=== PATIENT | male | born 1935 | race Caucasian/White ===

== ENCOUNTER 2019-08-22 06:30 | Observation (INO) | payer BC, MEDICARE ==
[~2019-08-22 06:30] MED LIST: Lactated Ringers 1,000 ML IV SCH; Sodium Chloride 0.9% 10 ML SDV IV PRN; Sodium Chloride 0.9% 10 ML Syringe FLUSH PRN; Sodium Chloride 0.9% 2.5 ML Syringe FLUSH PRN; ceFAZolin 2 GM in Premix Bag 1 BAG IV ONE
--- NOTE | 2019-08-22 07:16 | PCM.PREANE ---
Preanesthetic Assessment - Anesthesia/Transfusion/Family Hx Anesthesia History: Prior Anesthesia Without Reaction Other Type of Anesthesia Reaction Comment: Denies any known problem in past Family History of Anesthesia Reaction: No Transfusion History: No Prior Transfusion(s) Intubation History: Unknown - Review of Systems General: No Symptoms Pulmonary: No Symptoms Cardiovascular: No Symptoms Gastrointestinal: No Symptoms Neurological: No Symptoms Other: Reports: None - Physical Assessment Height: 6 ft 2 in Weight: 120.202 kg ASA Class: 3 Mental Status: Alert & Oriented x3 Airway Class: Mallampati = 2 Dentition: Reports: Normal Dentition, [place](s) (x2 upper front) Thyro-Mental Finger Breadths: 3 Mouth Opening Finger Breadths: 3 ROM/Head Extension: Limited/Partial Lungs: Clear to Auscultation, Normal Respiratory Effort Cardiovascular: Regular Rate, Regular Rhythm - Allergies Allergies/Adverse Reactions: Allergies Allergy/AdvReac Type Severity Reaction Status Date / Time No Known Allergies Allergy Verified 08/16/19 12:12 - Blood Blood Available: No - Anesthesia Plan Pre-Op Medication Ordered: None - Acknowledgements Anesthesia Type Planned: General Anesthesia Pt an Appropriate Candidate for the Planned Anesthesia: Yes Alternatives and Risks of Anesthesia Discussed w Pt/Guardian: Yes Pt/Guardian Understands and Agrees with Anesthesia Plan: Yes PreAnesthesia Questionnaire HEENT History: Reports: Impaired Vision Other HEENT History: wears glasses Cardiovascular History: Reports: High Cholesterol, Hypertension Gastrointestinal History: Reports: GI Bleed Other Gastrointestinal History: states GI bleed x2 Genitourinary History: Reports: BPH, Other (See Below) Other Genitourinary History: HX of prostate disease, bladder tumor Musculoskeletal History: Reports: Fracture, Gout Other Musculoskeletal History: states uses hot pack for back "stiffness", hx of laminectomy, knee surgery," removal" of right clavicle, fx left femur Neurological History: Reports: Concussion Oncologic (Cancer) History: Reports: Bladder - Past Surgical History Head Surgeries/Procedures: Reports: None GI Surgical History: Reports: Colonoscopy, EGD Male Surgical History: Reports: Vasectomy Other Male Surgeries/Procedures: hematuria Neurological Surgical History: Reports: Laminectomy Musculoskeletal Surgical History: Reports: Knee Replacement, Other (See Below) ( rt. clavicle resection) Other Musculoskeletal Surgeries/Procedures:: Left TKA 3 years ago - SUBSTANCE USE Smoking Status *Q: Former Smoker Tobacco Use Within Last Twelve Months: No Days Per Week of Alcohol Use: 7 Number of Drinks Per Day: 1 Total Drinks Per Week: 7 Recreational Drug Use History: No - HOME MEDS Home Medications: Home Meds Lisinopril [Zestril] 10 mg PO BEDTIME 03/20/14 [History] Terazosin HCl [Terazosin] 5 mg PO DAILY 03/20/14 [History] Finasteride [Proscar] 5 mg PO DAILY 05/30/15 [History] Multivitamin [Multivitamins] 1 cap PO DAILY 05/30/15 [History] Indomethacin [Indocin] 50 mg PO ASDIRECTED PRN 08/07/19 [History] - CURRENT (IN HOUSE) MEDS Current Meds: Current Medications Lactated Ringer's (Ringers, Lactated) 1,000 mls @ 100 mls/hr IV ASDIRECTED JEFFERY Last Admin: 08/22/19 07:08 Dose: 100 mls/hr Sodium Chloride (Saline Flush) 10 ml FLUSH ASDIRECTED PRN PRN Reason: Keep Vein Open Sodium Chloride (Saline Flush) 2.5 ml FLUSH ASDIRECTED PRN PRN Reason: Keep Vein Open Sodium Chloride (Normal Saline) 10 ml IV ASDIRECTED PRN PRN Reason: IV Use Discontinued Medications Cefazolin Sodium/Dextrose 2 gm (/ Premix) 50 mls @ 100 mls/hr IV ONETIME ONE Stop: 08/22/19 00:30
--- NOTE | 2019-08-22 10:50 | PCM.POSTAN ---
POST ANESTHESIA ASSESSMENT - MENTAL STATUS Mental Status: Alert, Oriented - VITAL SIGNS Vital Signs: Last Vital Signs Temp 36.5 C 08/22/19 09:45 Pulse 73 08/22/19 10:35 Resp 12 08/22/19 10:35 BP 140/68 08/22/19 10:35 Pulse Ox 95 08/22/19 10:35 - RESPIRATORY Respiratory Status: Respiratory Rate WNL, Airway Patent, O2 Saturation Stable - CARDIOVASCULAR CV Status: Pulse Rate WNL, Blood Pressure Stable - GASTROINTESTINAL GI Status: No Symptoms - PAIN Pain Score: 0 - POST OP HYDRATION Hydration Status: Adequate & Stable - OBSERVATIONS Free Text/Narrative:: No anesthesia problems
--- NOTE | 2019-08-22 13:27 | OR ---
SURGEON: Manny Gale M.D. 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 OPERATION: Transurethral resection of bladder tumor and fulguration. DESCRIPTION OF PROCEDURE: The patient was given general anesthesia, was placed in dorsal lithotomy position, prepped and draped in sterile drapes. Cystourethroscopy was done, showed a relatively large papillary tumor on the anterior wall of the bladder and multiple papillary tumors on the posterior wall of the bladder with a small papillary tumor at the 4 o'clock position just behind the neck of the bladder. The last one was resected. The papillary tumors on the posterior wall were partly resected in part and fulgurated, and the same was done on the larger tumor on the anterior wall of the bladder, and that particular tumor was kind of difficult to reach even with applying pressure pushing the anterior wall of the bladder down. At the end of resection, had a 22 three-way [place] catheter connected to TUR drip. Estimated blood loss under 50 mL. The patient tolerated the procedure well and was moved to recovery room in good condition. DAYANA / NANCY /[id number]
[2019-08-22] MEDS: Lactated Ringers 1,000 ML IV SCH (18:02)
[2019-08-22] MEDS ORDERED: Lisinopril 10 MG Tab PO SCH (21:00)
[2019-08-23] MEDS: Lactated Ringers 1,000 ML IV SCH (02:30)
[2019-08-23] MEDS ORDERED: Acetaminophen 325 MG Tab PO PRN (04:10)
--- NOTE | 2019-08-23 06:58 | PCM48HPAN ---
Post Anesthesia Note - EVALUATION WITHIN 48HRS OF ANESTHETIC Vital Signs in Normal Range: Yes Patient Participated in Evaluation: Yes Respiratory Function Stable: Yes Airway Patent: Yes Cardiovascular Function Stable: Yes Hydration Status Stable: Yes Pain Control Satisfactory: Yes Nausea and Vomiting Control Satisfactory: Yes Mental Status Recovered: Yes Vital Signs: Last Vital Signs Temp 97.7 F 08/23/19 04:32 Pulse 95 08/23/19 04:32 Resp 18 08/23/19 04:32 BP 145/78 H 08/23/19 04:32 Pulse Ox 96 08/23/19 04:32
[2019-08-23 07:40] VITALS: BP 134/63; PULSE 64
[2019-08-23] MEDS ORDERED: Terazosin 5 MG Cap PO SCH (09:00)
[2019-08-23] MEDS ORDERED: Finasteride 5 MG Tab PO SCH (09:00)
--- NOTE | 2019-08-23 12:05 | DISCH ---
DATE OF DISCHARGE: 08/23/2019 PRIMARY CARE PHYSICIAN: Manny Gale M.D. 84 years old. He had TURBT done yesterday for multiple large papillary bladder tumors. He was admitted to the hospital because of the extent of the procedure to make sure he will not bleed. Postoperatively, he did well. His urine remained clear. He had a [place] catheter overnight. He was sent home after the catheter was taken out. Pathology still pending. Plan is to see him again in 3 months in the office for cystoscopy. That was explained to him. DAYANA / NANCY /[id number]
== END 2019-08-23 11:30 | disposition home or self-care (01) ==
LOC: MW.SDS 06:30 → MW.MS 10:08 → MW.SDS 10:30 → MW.MS 10:31
PROVIDERS: ADMIT Urology; ATTEND Urology
DX: C67.3 Malignant neoplasm of anterior wall of bladder (principal); C67.4 Malignant neoplasm of posterior wall of bladder; C67.5 Malignant neoplasm of bladder neck; I10 Essential (primary) hypertension; E78.00 Pure hypercholesterolemia, unspecified; E78.5 Hyperlipidemia, unspecified; Z79.899 Other long term (current) drug therapy; Z98.52 Vasectomy status; Z87.891 Personal history of nicotine dependence
CPT/HCPCS: 52235; A9270; G0378; J7120; 51702; 88305